=== PATIENT | female | born 1995 | race Caucasian/White ===

== ENCOUNTER 2025-01-13 12:24 | Emergency (ER) | payer OTHER ==
[~2025-01-13] VITALS: Ht 165.1 cm; Wt 60.0 kg
[2025-01-13 12:28] VITALS: PULSE 89; RESP 16; O2SAT 100
[2025-01-13 12:42] VITALS: BP 103/67; TEMP 37; O2SAT 99
== END 2025-01-13 13:17 | disposition left against medical advice (07) ==
LOC: ER 12:24
DX: T23.002A Burn of unspecified degree of left hand, unspecified site, initial encounter (principal); T23.001A Burn of unspecified degree of right hand, unspecified site, initial encounter; Z53.21 Procedure and treatment not carried out due to patient leaving prior to being seen by health care provider; X58.XXXA Exposure to other specified factors, initial encounter; Y93.89 Activity, other specified; Y92.89 Other specified places as the place of occurrence of the external cause; Y99.8 Other external cause status